=== PATIENT | female | born 1955 | race Caucasian/White ===

== ENCOUNTER → 2017-04-03 | Outpatient (CLI) | payer OTHER ==
[~2017-04-03] MED LIST: GABA800T2 PO; LEVO500T33 PO
== END | disposition home or self-care (01) ==
LOC: CFH 12:44
PROVIDERS: ATTEND Internal Medicine Cardiovascular Disease
DX: Z01.810 Encounter for preprocedural cardiovascular examination (principal); I08.2 Rheumatic disorders of both aortic and tricuspid valves; I37.1 Nonrheumatic pulmonary valve insufficiency
CPT/HCPCS: 93306

== ENCOUNTER → 2018-04-23 | Outpatient (CLI) | payer OTHER ==
[~2018-04-23] MED LIST changes: -LEVO500T33 PO; +LEVO500T47 PO
== END | disposition home or self-care (01) ==
LOC: CFH 09:16
PROVIDERS: ATTEND Obstetrics & Gynecology
DX: Z12.31 Encounter for screening mammogram for malignant neoplasm of breast (principal)
CPT/HCPCS: 77067

== ENCOUNTER → 2018-04-30 | Outpatient (CLI) | payer OTHER | END | disposition home or self-care (01) | LOC: CFH 09:38 | PROVIDERS: ATTEND Obstetrics & Gynecology | DX: Z13.820 Encounter for screening for osteoporosis (principal); M85.89 Other specified disorders of bone density and structure, multiple sites | CPT/HCPCS: 77080 ==

== ENCOUNTER → 2019-04-26 | Outpatient (CLI) | payer OTHER ==
[~2019-04-26] MED LIST changes: +ALBU8.5H8 INH; +ASPI81TA45 PO; +B CO1TAB14 PO; +CALCIUM PO; +CHOL500015 PO; +ESCI10TA PO; -GABA800T2 PO; +GABA800T5 PO; +MELO15TA24 PO; +TRAM50TA2 PO; +[UNRECOGNIZED DRUG - OTHER] PO
== END | disposition home or self-care (01) ==
LOC: STAR 15:06
PROVIDERS: ATTEND Orthopaedic Surgery
DX: Z01.818 Encounter for other preprocedural examination (principal); M19.011 Primary osteoarthritis, right shoulder; M75.121 Complete rotator cuff tear or rupture of right shoulder, not specified as traumatic; R94.31 Abnormal electrocardiogram [ECG] [EKG]
CPT/HCPCS: 87081; 93005

== ENCOUNTER 2019-08-31 10:32 | Outpatient (CLI) | payer OTHER | END 2019-08-31 23:59 | disposition home or self-care (01) | LOC: CFH 10:32 | PROVIDERS: ATTEND Obstetrics & Gynecology | DX: Z12.31 Encounter for screening mammogram for malignant neoplasm of breast (principal) | CPT/HCPCS: 77067 ==

== ENCOUNTER 2019-11-29 11:55 | Emergency (ER) | payer OTHER ==
[~2019-11-29] VITALS: Ht 170.2 cm; Wt 64.6 kg
--- NOTE | 2019-11-29 12:36 | NUR ---
pt to x ray now.
[2019-11-29 12:44] LABS: BASOPHILS # (AUTO) 0.02 x10^3/uL (0-0.1); BASOPHILS % (AUTO) 0 % (0-1); EOSINOPHILS # (AUTO) 0.09 x10^3/uL (0-0.4); EOSINOPHILS % (AUTO) 1 % (1-7); LYMPHOCYTES # (AUTO) 1.32 x10^3/uL (1-3.4); LYMPHOCYTES % (AUTO) 21 % (22-44); MD NO; MEAN CORPUSCULAR HEMOGLOBIN 32.4 pg (27.0-34.8); MEAN CORPUSCULAR HGB CONC 33.5 g/dL (32.4-35.8); MEAN CORPUSCULAR VOLUME 96.6 fL (80-100); MONOCYTES # (AUTO) 0.39 x10^3/uL (0.2-0.8); MONOCYTES % (AUTO) 6 % (2-9); NEUTROPHILS % (AUTO) 72 % (42-75); PLATELET COUNT 222 x10^3/uL (130-400); RED CELL DISTRIBUTION WIDTH 12.5 % (9.6-15.2)
[2019-11-29 12:55] LABS: ANION GAP 5 mmol/L (5-15); CALCIUM 9.1 mg/dL (8.5-10.1); CHLORIDE 110 mmol/L (98-107)
[2019-11-29 13:01] LABS: ALANINE AMINOTRANSFERASE 38 U/L (12-78); ALKALINE PHOSPHATASE 92 U/L (45-117); BILIRUBIN,TOTAL 1.1 mg/dL (0.2-1.0); CREATININE 0.55 mg/dL (0.55-1.02); TOTAL PROTEIN 7.7 g/dL (6.4-8.2); TROPONIN I < 0.015 ng/mL (0.000-0.045)
--- NOTE | 2019-11-29 13:06 | NUR ---
called in room by pt to inform this rn she experienced "the fluttering" again. the fluttering was seen to correlate with a pair of pvc's on the monitor. provider made aware.
[2019-11-29 13:47] VITALS: BP 158/83
--- NOTE | 2019-11-29 13:48 | NUR ---
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 PT STATES PAIN IS UNCHANGED FROM ARRIVAL, REQUESTING DISCHARGE. ALL DIAGNOSTICS RESULTED, CHART UP FOR RECHECK. AWAITING MD AND DISPO.
--- NOTE | 2019-11-29 14:00 | NUR ---
task rn note: this RN discussed pt's d dimer level with MD, per MD pt's age adjusted d dimer is normal. MD aware pt still has low level of CP, per pt this is unchaged since arrival. instructed RN to dc pt, pt given dc instructions and script, educated for dc rx of zantac and pepcid. pt a&o, resps even and unlabored, nadn at dc. nsr on cardiac montior with no ectopy prior to dc. pt amb to dc desk with steady gait, all questions answered.
== END 2019-11-29 14:01 | disposition home or self-care (01) ==
LOC: ED 13:35
DX: R07.89 Other chest pain (principal); R00.2 Palpitations
CPT/HCPCS: 36415; 71046; 80053; 84484; 85025; 85379; 93005; 99284